=== PATIENT | male | born 1980 | race Caucasian/White ===

== ENCOUNTER 2018-08-07 23:43 | Emergency (ER) | payer OTHER ==
[~2018-08-07] VITALS: Ht 190.5 cm; Wt 113.4 kg
[2018-08-08] MEDS ORDERED: IBUPROFEN 800800 M1 PO (00:15)
[2018-08-08] MEDS ORDERED: NORCO 5-325 TA1 EACH PO (00:15)
[2018-08-08] MEDS ORDERED: KEFLEX500 M1 PO (00:55)
[2018-08-08 01:04] VITALS: BP 156/80
== END 2018-08-08 01:06 | disposition home or self-care (01) ==
LOC: M.ERS 23:43
DX: S62.603A Fracture of unspecified phalanx of left middle finger, initial encounter for closed fracture (principal); S62.605A Fracture of unspecified phalanx of left ring finger, initial encounter for closed fracture; X58.XXXA Exposure to other specified factors, initial encounter; Y93.89 Activity, other specified; Y92.89 Other specified places as the place of occurrence of the external cause; Y99.8 Other external cause status